=== PATIENT | male | born 1980 | race Caucasian/White ===

== ENCOUNTER → 2021-01-23 | Day surgery (SDC) | payer BC ==
[~2021-01-23] MED LIST: NOHOMEMEDICATIONS; NORCO5 PO; PREDNISONE 20 M20 MG PO; ZPAK PO
--- NOTE | 2021-02-02 12:00 | OP ---
[facility] [address] [place] [address] OPERATIVE REPORT Name: TODD ROMAN DARIANA MIRIAM Room: [facility].#: [id number] Admission: 01/23/21 Attend Phys: Willian Osborne Discharge: Date of : 78 Report #: [id number] THIS REPORT FOR: cc: Geraldo Franklin MD, Anthony MD Patterson,Willian Khan MD ~ DATE OF SURGERY: 01/23/2021 PREOPERATIVE DIAGNOSIS: Right buttock mass, benign, 3 x 3 cm. POSTOPERATIVE DIAGNOSIS: Right buttock mass, benign, 3 x 3 cm. OPERATION: 1. Rectal exam under anesthesia. 2. Excision of right buttock mass, 3 x 3 cm, benign. SURGEON: Willian Osborne M.D. ANESTHESIA: General. ESTIMATED BLOOD LOSS: Minimal. SPECIMENS: Right buttock mass. DESCRIPTION OF PROCEDURE: After informed consent was obtained, the patient was brought to the operating room and placed supine. SCDs were placed and working, preoperative antibiotics were administered, general anesthesia was induced. The patient was placed in the lithotomy position. Digital rectal exam was performed. This did not demonstrate any masses. [place] speculum was inserted. Examination was performed. There were no fistulous tracts that I could see. I made 3 x 3 incision over the palpable masses in the right side. Cautery dissection was made down through the subcutaneous tissue. Dissection was carried out down to the healthy fat. There were no tracts that I could appreciate. The area was then irrigated with normal saline. The masses were excised with cautery. I then packed the area with a sterile gauze. Sterile dressings were applied. COMPLICATIONS: None. DISPOSITION: The patient was taken to recovery in satisfactory condition. <ELECTRONICALLY SIGNED> By: Willian Osborne MD 02/02/21 1200 0731 [id number] Osborne MD /nt
--- NOTE | 2021-02-25 11:52 | PATH ---
[facility] [address] [place] [address] PATHOLOGY RPT PROCEDURE Name: TODD ROMAN III Room: [employer]#: [id number] Admission: 01/23/21 Date of : 78 Discharge: Report #: [id number] Path Case #: [id number] [facility] Accession Number: [id number] . 01 Material submitted: . rectum - RIGHT PERIRECTAL MASS. Modifiers: right . 01 Clinical history: . INCISION AND DRAINAGE ALTON RECTAL ABSCESS . 02 Diagnosis: Right perirectal mass: - Benign skin with evidence of deep abscess, chronic inflammation and fibrosis. (JOSEPH/db; 01/25/2021) LBQ 01/25/2021 1222 Local . 02 Electronically signed: . Matt Ramsay MD, Pathologist NPI- [id number] . 01 Gross description: . Received in formalin labeled "Farhad, Todd, right perirectal mass" is an irregular portion of yellow-saunders soft tissue measuring 4.7 x 3.7 x 2.5 cm. The specimen displays 2 adherent irregular fragments of saunders-white skin measuring 1.5 and 3.3 cm in greatest dimension. The larger portion of skin displays a saunders-red fibrotic area extending into the deep soft tissue measuring 2.6 cm in greatest dimension, possibly consistent with an ulcer or sinus tract. The margin is inked black and a open claims representative section is submitted in cassette A1. ([facility]; 01/24/2021) [facility] 01/24/2021 0843 Local . 02 Pathologist provided ICD-10: K61.1, L08.9, L90.5 . 02 CPT . 897474 Specimen Comment: A courtesy copy of this report has been sent to [phone], [phone] Specimen Comment: [id number] Specimen Comment: Report sent to / DR LEUNG Specimen Comment: A duplicate report has been generated due to demographic updates. Performed at: [address] [facility], [place] [id number] MD Jorge L Ferris MD Phone: [phone] [place] [address] PATHOLOGY RPT PROCEDURE Name: TODD ROMAN III Room: [employer]#: [id number] Admission: 01/23/21 Date of : 78 Discharge: Report #: [id number] Path Case #: [id number] Performed at: 02 [facility] Noé Zavala [address] [place], [place] [id number] MD Matt Ramsay MD Phone: [phone]
== END | disposition home or self-care (01) ==
LOC: M.SUR 06:09
PROVIDERS: ATTEND Surgery
DX: K61.1 Rectal abscess (principal); L08.9 Local infection of the skin and subcutaneous tissue, unspecified; L90.5 Scar conditions and fibrosis of skin; Z98.890 Other specified postprocedural states; Z79.899 Other long term (current) drug therapy; Z20.822 Contact with and (suspected) exposure to COVID-19; Z88.8 Allergy status to other drugs, medicaments and biological substances